=== PATIENT | female | born 1960 | race Caucasian/White ===

== ENCOUNTER → 2021-04-11 | Day surgery (SDC) | payer BC ==
[~2021-04-11] MED LIST: NIFEDIPINE ER30 M1 PO; OR PHACO EYE KIT ONE; PRAVASTATIN SOD20 MG PO; PREOP PHACO EYE KIT ONE
[2021-04-11 12:17] VITALS: BP 155/77
== END | disposition home or self-care (01) ==
LOC: OR 09:56
PROVIDERS: ATTEND Ophthalmology
DX: H25.12 Age-related nuclear cataract, left eye (principal); I10 Essential (primary) hypertension; E78.5 Hyperlipidemia, unspecified; F17.210 Nicotine dependence, cigarettes, uncomplicated

== ENCOUNTER → 2021-06-13 | Day surgery (SDC) | payer BC, OTHER ==
[2021-06-13 11:35] VITALS: BP 137/85
== END | disposition home or self-care (01) ==
LOC: OR 09:24
PROVIDERS: ATTEND Ophthalmology
DX: H25.11 Age-related nuclear cataract, right eye (principal); I10 Essential (primary) hypertension; E78.5 Hyperlipidemia, unspecified; F41.9 Anxiety disorder, unspecified; F17.210 Nicotine dependence, cigarettes, uncomplicated; Z01.812 Encounter for preprocedural laboratory examination; Z20.822 Contact with and (suspected) exposure to COVID-19
CPT/HCPCS: 36415; 66984; 84132; U0002; V2632